=== PATIENT | male | born 1985 | race Caucasian/White ===

== ENCOUNTER 2017-03-07 19:43 | Emergency (ER) | payer OTHER ==
[~2017-03-07] VITALS: Ht 167.6 cm; Wt 86.2 kg
[2017-03-07 19:52] VITALS: BP_SYST 121
--- NOTE | 2017-03-07 20:00 | NUR ---
Patient to ER bed 2 to gown for evaluation. Side rails up. Report given to Jung MCFARLAND.
--- NOTE | 2017-03-07 20:00 | NUR ---
Pt states that he was playing softball and he slid into [place] wrong and hurt his R shoulder. Obvious deformity to R shoulder. Pt states his pain is 2/10. Will continue to monitor. No other injuries or complaints mentioned/noted. No distress noted.
--- NOTE | 2017-03-07 21:20 | NUR ---
ER Dr. Hunter at bedside examining patient.
[2017-03-07 22:24] VITALS: BP_SYST 121
--- NOTE | 2017-03-07 22:24 | NUR ---
Patient given written and verbal discharge instructions and verbalizes understanding. ER MD discussed with patient the results and treatment provided. Patient in stable condition. ID arm band removed. Rx of Tylenol with codeine given. Patient educated on pain management and to follow up with PMD. Pain Scale 0/10. Opportunity for questions provided and answered.
== END 2017-03-07 22:24 | disposition home or self-care (01) ==
LOC: SED 19:43
DX: M25.511 Pain in right shoulder (principal)
CPT/HCPCS: 73030; 99284